=== PATIENT | female | born 1965 | race American Indian/Alaskan Native ===

== ENCOUNTER 2018-10-30 10:54 | Inpatient (IN) | payer MEDICAID ==
[2018-10-30 11:18] VITALS: BMI 36.8
--- NOTE | 2018-10-30 11:28 | C.PDOC ---
History Of Present Illness 53 year old female referred to ED from outpatient psych for admission for worsening depression. Patient is a poor historian. Patient states that she takes her medication, but is still depressed. Patient denies drug use, alcohol abuse, suicidal ideation, or homicidal ideation. Time Seen by Provider: 10/30/18 11:25 Chief Complaint (Nursing): Psychiatric Evaluation History Per: Patient History/Exam Limitations: no limitations Onset/Duration Of Symptoms: Unknown Current Symptoms Are (Timing): Worse Suicide/Self Injury Attempted (Context): None Modifying Factor(s): None Associated Symptoms: Depression. denies: Suicidal Thoughts, Suicidal Plan Past Medical History Reviewed: Historical Data, Nursing Documentation, Vital Signs Vital Signs: Last Vital Signs Temp 98 F 10/30/18 11:07 Pulse Resp BP 154/91 H 10/30/18 11:07 Pulse Ox Primary Care Provider: Non [facility] Provider, - Medical History PMH: Anxiety, Asthma, Bipolar Disorder, COPD, Graves' Disease, HTN, Sleep Apnea Surgical History: No Surg Hx Family History: States: Unknown Family Hx - Social History Hx Alcohol Use: Yes Hx Substance Use: No - Immunization History Hx Tetanus Toxoid Vaccination: No Hx Influenza Vaccination: No Hx Pneumococcal Vaccination: No Review Of Systems Except As Marked, All Systems Reviewed And Found Negative. Psych: Positive for: Depression. Negative for: Suicidal ideation Physical Exam - Physical Exam Appears: Non-toxic, No Acute Distress, Other (flat affect, no acute intoxication) Skin: Normal Color, Warm, Dry Head: Atraumatic, Normacephalic Eye(s): bilateral: Normal Inspection, PERRL, EOMI Neck: Normal ROM, Supple Chest: Symmetrical, No Deformity Cardiovascular: Rhythm Regular, No Murmur Respiratory: No Accessory Muscle Use, No Rales, No Rhonchi, No Wheezing, Other (NARD) Gastrointestinal/Abdominal: Soft, No Tenderness, No Distention, No Guarding, No Rebound Extremity: Capillary Refill (<2 seconds) Extremity: Bilateral: Atraumatic, Normal Color And Temperature, Normal ROM Pulses: Left Radial: Normal, Right Radial: Normal Neurological/Psych: Oriented x3, Other (calm, cooperative, no active psychosis, no suicidal ideation, no suicide attempt) ED Course And Treatment - Laboratory Results Result Diagrams: 10/30/18 12:42 10/30/18 12:42 Progress Note: Labs ordered with drug screen and UA. CBC and UA ordered for patient. Pending Crisis/Psych evaluation. Reevaluation Time: 14:09 Reassessment Condition: Unchanged (MED CLEAR FOR PSYCH. CRISIS NOTIFIED) Disposition Counseled Patient/Family Regarding: Studies Performed, Diagnosis - Disposition Disposition: HOSPITALIZED Disposition Time: 14:14 Condition: STABLE Forms: [facility] (Kinyarwanda) - POA Present On Arrival: None - Clinical Impression Clinical Impression: Depression - Scribe Statement The provider has reviewed the documentation as recorded by the Scribe (Janie Hernandez) All medical record entries made by the Scribe were at my direction and personally dictated by me. I have reviewed the chart and agree that the record accurately reflects my personal performance of the history, physical exam, med ical decision making, and the department course for this patient. I have also personally directed, reviewed, and agree with the discharge instructions and disposition.
[2018-10-30 12:46] LABS: BASO % 0.7 % (0.0-2.0); EOS # 0.1 K/uL (0.0-0.7); EOS % 1.5 % (0.0-4.0); HEMOGLOBIN 12.5 g/dL (11.0-16.0); LYMPH # 1.3 K/uL (1.0-4.3); LYMPH % 31.3 % (20.0-40.0); MEAN CELL VOLUME 84.9 fL (81.0-99.0); MEAN CORPUSCULAR HEMOGLOBIN 28.6 pg (27.0-31.0); MEAN CORPUSCULAR HGB CONC 33.6 g/dL (33.0-37.0); MEAN PLATELET VOLUME 8.6 fL (7.2-11.7); MONO # 0.2 K/uL (0.0-0.8); MONO % 4.9 % (0.0-10.0); NEUT # 2.6 K/uL (1.8-7.0); NEUT % 61.6 % (50.0-75.0); NRBC % 0.1 % (0.0-2.0); RBC 4.39 Mil/uL (3.80-5.20); RED CELL DISTRIBUTION WIDTH 14.2 % (11.5-14.5); WHITE BLOOD COUNT 4.2 K/uL (4.8-10.8)
[2018-10-30 13:05] LABS: ALB/GLOB RATIO 1.3 (1.0-2.1); ALBUMIN 4.4 g/dL (3.5-5.0); ALT/SGPT 20 U/L (9-52); AST/SGOT 45 U/L (14-36); BLOOD UREA NITROGEN 12 mg/dL (7-17); CALCIUM 9.5 mg/dl (8.6-10.4); GFR NON-AFRICAN AMERICAN 52
[2018-10-30 13:44] LABS: SQUAMOUS EPITHIAL 9 /hpf (0-5); URINE BACTERIA OCC (<OCC); URINE BILIRUBIN NEGATIVE (NEGATIVE); URINE BLOOD NEGATIVE (NEGATIVE); URINE CLARITY Clear (Clear); URINE COLOR Yellow (YELLOW); URINE GLUCOSE (UA) NORMAL (Normal); URINE LEUKOCYTE ESTERASE 2+ Leu/uL (Negative); URINE PROTEIN NEGATIVE (NEGATIVE); URINE UROBILINOGEN NORMAL mg/dL (0.2-1.0)
[2018-10-30 13:52] LABS: BARBITURATES, UR NEGATIVE (NEGATIVE); BENZODIAZEPINES, UR NEGATIVE (NEGATIVE); OPIATES, UR NEGATIVE (NEGATIVE); PHENCYCLIDINE, UR NEGATIVE (NEGATIVE)
--- NOTE | 2018-10-30 17:53 | PCM.BM ---
<Aimee Norman - Last Filed: 10/30/18 17:50> Treatment Plan Problems - Problems identified on initial assessmt Altered Sleep Patterns Date Initiated: 10/30/18 Time Initiated: 17:51 Assessment reference: NA Status: Active Medication Nonadherence Date Initiated: 10/30/18 Time Initiated: 17:51 Assessment reference: NA Status: Active Self Care Deficit Date Initiated: 10/30/18 Time Initiated: 17:51 Assessment reference: NA Status: Active Treatment assets and liabiliti Patient Assests: adapts well, cooperative, educated, self-reliant, ADL independent, physically healthy, negotiates basic needs, cognitively intact Patient Liabilities: physical pain, financial problems (Unemployed), medical problems (HTN, Lupus, Asthma, Sleep Apnea), visual impairment (Wear Glasses) - Milieu Protocol Maintain good personal hygiene: daily Encourage regular showers, daily Remind patient to perform daily oral care, daily Assist patient to perform ADL's (Self), other Assist patient to perform ADL's Conduct patient checks and document Observation sheet: Q15 minutes (Safety) Maintain personal safety: every shift Educate patient to report safety concerns to staff, every shift Monitor environment for contraband/sharps Medication safety: Monitor for expected outcome, potential side effects: every shift, Assess barriers to learning: every shift, Assess readiness for medication education: every shift <Gena Mar - Last Filed: 10/31/18 10:20> - Diagnosis (1) Bipolar disorder, curr episode depressed, severe, w/psychotic features Status: Acute Interventions: 10/31/18 10:21 * Assess/adjust medications daily and /or as needed * See patient on an individual basis 7x/week to assess symptoms of depression * Monitor for side effects & effectiveness of medications * <Soni Triana - Last Filed: 10/31/18 12:53> Family Contact Family involvement: Family/SO is involved Family contact: Patient declines to allow family contact at present - Goals for Treatment Patient goals for treatment: "I need to be calm." Discharge/Continuing Care - Education Needs Education Needs: Patient Medication, Patient Coping Skills - Discharge Discharge Criteria: Tolerates medication w/o severe side effects, Reduction of target symptoms Discharge to:: Home, With Family - Treatment Team Participation Discussed with Family/SO: No Was Patient/Family/SO present at Treatment Team Meeting: Yes
--- NOTE | 2018-10-31 09:45 | PCM.PSYCH ---
Initial Psychiatric Evaluation - Initial Psychiatric Evaluation Type of Admission: Voluntary Legal Status: Capacity Chief Complaint (in patient's own words): I was feeling depressed and suicidal.' History of Present Illness and Precipitating Events: Patient is a 53 year old female, currently unemployed, lives with her son, was referred by Dr. Brooks from the [facility] to come into [facility], because of increasing depressed mood and passive suicidal ideation. Patient reports history of one inpatient psychiatric hospitalization, in 1996 at [facility], when her sister by heroin overdose. She reports history of follow-up with the [facility], Dr. Brooks. Her last appointment was yesterday. As per the patient, she was feeling so depressed yesterday that her doctor recommended her to go to the ED. Patient reports a lot of stressors. She reports that she lost her father, last year, Jun 2017. She lost her mother in 2010, and lost 2 sisters afterwards. She reports that she feels lonely as she has a brother, who speaks with her rarely. She reports that she broke up with the ex-BF after a long standing relationship. But she sees ex BF, in [place] everyday. Yesterday she dad a verbal altercation with her ex boyfriend, became increasingly depressed and developed passive suicidal ideation. So she came to the hospital to get the help. She reports depressed mood, feelings of hopelessness, helplessness and worthlessness. She reports poor sleep and anhidonia. She reports that she is not eating and her weight is dropping these days. Patient reported that she is having difficulty in functioning in everyday life and this has led her to become unemployed and wanting to be alone most of the day. Patient appeared unkempt and has a poor hygiene. Her affect was very blunted and flat. She reports anxiety a nd panic attacks and reports symptoms including palpitation, shortness of breath, sweating, and tingling. She reports that at times she gets angry, and irritable. She reports racing thoughts. She reports visual hallucinations, seeing shadows but denies any voices. She reports of drinking socially but denies any drugs. PMH: Lupus, graves disease, Sleep apnea, HTN, Vertigo, Asthma Current Medications: Active Medications Generic Name Dose Route Start Last Admin Trade Name Freq PRN Reason Stop Dose Admin Amlodipine Besylate 5 mg 10/31/18 10:00 10/31/18 09:23 Norvasc PO 5 mg DAILY OLEGARIO Administration Buspirone HCl 5 mg 10/30/18 18:00 10/31/18 09:23 Buspar PO 5 mg BID OLEGARIO Administration Pneumococcal Polyvalent Vaccine 0.5 ml 11/02/18 10:00 Pneumovax 23 Vaccine IM 11/02/18 10:01 .ONCE ONE Sertraline HCl 150 mg 10/31/18 10:00 10/31/18 09:23 Zoloft PO 150 mg DAILY OLEGARIO Administration Zolpidem Tartrate 5 mg 10/30/18 22:00 10/30/18 21:49 Ambien PO 5 mg HS OLEGARIO Administration Past Psychiatric History - Past Psychiatric History Previous Treatment History: Inpatient Pertinent Medical Hx (Current Medical&Sleep Prob, Allergies): Allergies Allergy/AdvReac Type Severity Reaction Status Date / Time levofloxacin [From Levaquin] Allergy Verified 10/30/18 11:06 Colesevelam HCl [Welchol] 625 mg PO DAILY 10/30/18 Cyanocobalamin (Vitamin B-12) [Vitamin B12] 2,500 mcg PO DAILY 10/30/18 Cyclobenzaprine [Cyclobenzaprine HCl] 10 mg PO BID 10/30/18 Gabapentin [Neurontin] 100 mg PO TID 10/30/18 Hydroxyzine HCl 25 mg PO BID 10/30/18 Levocetirizine Dihydrochloride 5 mg PO DAILY 10/30/18 Losartan [Cozaar] 50 mg PO DAILY 10/30/18 Meclizine HCl 25 mg PO DAILY 10/30/18 amLODIPine [Norvasc] 5 mg PO DAILY 10/30/18 Review of Systems - Review of Systems All systems: reviewed and no additional remarkable complaints except - Psychiatric Psychiatric: Anxiety, Hallucinations, Irritability, Mood Swings, Suicidal Ideation Mental Status Examination - Personal Presentation Personal Presentation: Looks stated age - Affect Affect: Constricted, Depressed - Motor Activity Motor Activity: Calm - Reliability in Providing Information Reliability in Providing Information: Poor, due to altered mood - Speech Speech: Organized - Mood Mood: Depressed, Anxious - Formal Thought Process Formal Thought Process: Hallucinations, Flight of ideas - Hallucinations/Delusions Hallucinations: Visual - Obsessions/Compulsions Obsessions: No Compulsions: No - Cognitive Functions Orientation: Person, Place, Situation, Time Sensorium: Alert Attention/Concentration: Attentive Abstract Thinking: [place] Estimate of Intelligence: Below average Judgement: Imparied, as evidence by: Poor judgement, Imparied, as evidence by: Lack of insight into illness - Risk Risk: Suicidal, Diminished functioning - Limitations Limitations: Living alone DSM 5 DX - DSM 5 DSM 5 Diagnosis: Bipolar depressed severe with psychotic features Generalized anxiety disorder - Recommended/Plan of Treatment Treatment Recommendations and Plan of Treatment: Bipolar depressed severe with psychotic features Generalized anxiety disorder Lupus Asthma Sleep apnea Graves' disease HTN CBT Psychoeducation Supportive therapy Zoloft for depression Topamax for mood Neurontin for mood Ambien for insomnia Continue medications for lupus, asthma, sleep apnea Continue medications for Graves' disease, HTN - Smoking Cessation Smoking Cessation Initiated: No
[2018-10-31] MEDS: Metoprolol Succinate 100 mg XL Tab PO SCH ×2 (10:01→17:28)
[2018-10-31] MEDS: methIMAzole 5 MG TAB PO SCH (11:01)
[2018-10-31] MEDS: Pantoprazole 40 mg EC Tab PO SCH (12:42)
[2018-10-31] MEDS: Albuterol 0.083% Inhal Sol (2.5 mg/3 mL) UD INH PRN (14:09)
[2018-11-01] MEDS: Pantoprazole 40 mg EC Tab PO SCH (09:25)
[2018-11-01] MEDS: Cholestyramine 4 gm/Pkt UD PO SCH (09:25)
[2018-11-01] MEDS: Metoprolol Succinate 100 mg XL Tab PO SCH ×2 (09:25→18:05)
[2018-11-01] MEDS: methIMAzole 5 MG TAB PO SCH (09:26)
--- NOTE | 2018-11-01 16:10 | PCM.PYCHPN ---
Psychiatric Progress Note - Psychiatric Progress Note Patient seen today, length of contact: 15 min Patient Chief Complaint: I was feeling depressed and suicidal.' Problems Identified/Issues Discussed: Patient was seen and evaluated, chart reviewed and discussed the staff. Patient reports depressed mood and at times feelings of hopelessness and helplessness. Per staff she remained cooperative and redirectable She still appears somewhat paranoid and delusional. She still reports of hearing voices. She is taking medication but denies any side effects. She needs to stay longer for the stabilization of the symptoms. Supportive therapy was provided. Medication Change: Yes Medical Record Reviewed: Yes Mental Status Examination - Cognitive Function Orientation: Person, Place, Situation, Time Memory: Intact Attention: WNL Concentration: WNL Association: Loose Fund of Knowledge: Poor - Mood Mood: Depressed, Anxious - Affect Affect: Constricted, Depressed - Speech Speech: Soft - Formal Thought Process Formal Thought Process: Hallucinations, Loosening of associations, Flight of ideas - Suicidal Ideation Suicidal Ideation: No - Homicidal Ideation Homicidal Ideation: No Goal/Treatment Plan - Goal/Treatment Plan Need for Continued Stay: Remain at risks for inpatient hospitalization Progress Toward Problem(s) and Goals/Treatment Plan: Bipolar depressed severe with psychotic features Generalized anxiety disorder Lupus Asthma Sleep apnea Graves' disease HTN CBT Psychoeducation Supportive therapy Zoloft for depression Topamax for mood Neurontin for mood Ambien for insomnia Continue medications for lupus, asthma, sleep apnea Continue medications for Graves' disease, HTN
[2018-11-02] MEDS: Cholestyramine 4 gm/Pkt UD PO SCH (09:32)
[2018-11-02] MEDS: Pantoprazole 40 mg EC Tab PO SCH (09:33)
[2018-11-02] MEDS: Metoprolol Succinate 100 mg XL Tab PO SCH ×2 (09:34→17:08)
[2018-11-02] MEDS: methIMAzole 5 MG TAB PO SCH (09:34)
[2018-11-02] MEDS ORDERED: Pneumococcal 23-Valent Vaccine IM ONE (10:00)
--- NOTE | 2018-11-02 21:55 | PCM.PYCHPN ---
Psychiatric Progress Note - Psychiatric Progress Note Patient seen today, length of contact: 15 min Patient Chief Complaint: I was feeling depressed and suicidal.' Problems Identified/Issues Discussed: Patient was seen and evaluated, chart reviewed and discussed the staff. Per staff she remained cooperative and redirectable Patient reports depressed mood and at times feelings of hopelessness and helplessness. She still appears somewhat paranoid and delusional. She still reports of hearing voices. She is taking medication but denies any side effects. She needs to stay longer for the stabilization of the symptoms. Supportive therapy was provided. Medication Change: Yes Medical Record Reviewed: Yes Mental Status Examination - Cognitive Function Orientation: Person, Place, Situation, Time Memory: Intact Attention: WNL Concentration: WNL Association: Loose Fund of Knowledge: Poor - Mood Mood: Depressed, Anxious - Affect Affect: Constricted, Depressed - Speech Speech: Soft - Formal Thought Process Formal Thought Process: Hallucinations, Loosening of associations, Flight of ideas - Suicidal Ideation Suicidal Ideation: No - Homicidal Ideation Homicidal Ideation: No Goal/Treatment Plan - Goal/Treatment Plan Need for Continued Stay: Remain at risks for inpatient hospitalization Progress Toward Problem(s) and Goals/Treatment Plan: Bipolar depressed severe with psychotic features Generalized anxiety disorder Lupus Asthma Sleep apnea Graves' disease HTN CBT Psychoeducation Supportive therapy Zoloft for depression Topamax for mood Neurontin for mood Ambien for insomnia Continue medications for lupus, asthma, sleep apnea Continue medications for Graves' disease, HTN
[2018-11-03] MEDS: Pantoprazole 40 mg EC Tab PO SCH (10:06)
[2018-11-03] MEDS: methIMAzole 5 MG TAB PO SCH (10:07)
[2018-11-03] MEDS: Metoprolol Succinate 100 mg XL Tab PO SCH ×2 (10:07→18:16)
[2018-11-03] MEDS: Cholestyramine 4 gm/Pkt UD PO SCH (10:08)
[2018-11-03] MEDS ORDERED: Magnesium Hydroxide Susp 30 ml UD PO ONE (11:40)
--- NOTE | 2018-11-03 11:40 | PCM.PYCHPN ---
Psychiatric Progress Note - Psychiatric Progress Note Patient seen today, length of contact: 15 min Patient Chief Complaint: "I'm bloated" Problems Identified/Issues Discussed: The pt is seen again, chart reviewed, and case is discussed with the team. The pt denies any side-effects from meds. Attends activities and groups, brief individual therapy provided Not ready for discharge due to ongoing symptoms and high relapse risk. After care discussed again. Medication Change: Yes (MOM x1) Medical Record Reviewed: Yes Mental Status Examination - Cognitive Function Orientation: Person, Place, Situation, Time Memory: Intact Attention: WNL Concentration: WNL Association: Loose Fund of Knowledge: Poor - Mood Mood: Depressed, Anxious - Affect Affect: Constricted, Depressed - Speech Speech: Soft - Formal Thought Process Formal Thought Process: No Impairment - Suicidal Ideation Suicidal Ideation: No - Homicidal Ideation Homicidal Ideation: No Goal/Treatment Plan - Goal/Treatment Plan Need for Continued Stay: Discharge may exacerbated symptoms, Severe functional impairment Progress Toward Problem(s) and Goals/Treatment Plan: Continue medications Support and psychoeducation daily Attend groups and activities daily Individual therapy After care planning by SUKHJINDER and the team
[2018-11-04 06:49] VITALS: RESP 20
[2018-11-04] MEDS: Metoprolol Succinate 100 mg XL Tab PO SCH ×2 (09:38→18:47)
[2018-11-04] MEDS: Pantoprazole 40 mg EC Tab PO SCH (09:38)
[2018-11-04] MEDS: methIMAzole 5 MG TAB PO SCH (09:38)
[2018-11-04] MEDS: Cholestyramine 4 gm/Pkt UD PO SCH (09:39)
[2018-11-04] MEDS: Albuterol 0.083% Inhal Sol (2.5 mg/3 mL) UD INH PRN (22:05)
[2018-11-05] MEDS: Pantoprazole 40 mg EC Tab PO SCH (09:22)
[2018-11-05] MEDS: Cholestyramine 4 gm/Pkt UD PO SCH (09:22)
[2018-11-05] MEDS: Metoprolol Succinate 100 mg XL Tab PO SCH ×2 (09:25→17:33)
[2018-11-05] MEDS: methIMAzole 5 MG TAB PO SCH (09:45)
--- NOTE | 2018-11-05 10:49 | PCM.PYCHPN ---
Psychiatric Progress Note - Psychiatric Progress Note Patient seen today, length of contact: 15 min Patient Chief Complaint: I was feeling depressed and suicidal.' Problems Identified/Issues Discussed: Patient was seen and evaluated, chart reviewed and discussed the staff. Per staff she remained cooperative and redirectable Patient reports depressed mood and at times feelings of hopelessness and helplessness. She still appears somewhat paranoid and delusional. She still reports of hearing voices. She is taking medication but denies any side effects. She needs to stay longer for the stabilization of the symptoms. Supportive therapy was provided. Medication Change: Yes (MOM x1) Medical Record Reviewed: Yes Mental Status Examination - Cognitive Function Orientation: Person, Place, Situation, Time Memory: Intact Attention: WNL Concentration: WNL Association: Loose Fund of Knowledge: Poor - Mood Mood: Depressed, Anxious - Affect Affect: Constricted, Depressed - Speech Speech: Soft - Formal Thought Process Formal Thought Process: No Impairment - Suicidal Ideation Suicidal Ideation: No - Homicidal Ideation Homicidal Ideation: No Goal/Treatment Plan - Goal/Treatment Plan Need for Continued Stay: Discharge may exacerbated symptoms, Severe functional impairment Progress Toward Problem(s) and Goals/Treatment Plan: Bipolar depressed severe with psychotic features Generalized anxiety disorder Lupus Asthma Sleep apnea Graves' disease HTN CBT Psychoeducation Supportive therapy Zoloft for depression Topamax for mood Neurontin for mood Ambien for insomnia Continue medications for lupus, asthma, sleep apnea Continue medications for Graves' disease, HTN
[2018-11-06 06:59] VITALS: BP 126/65; PULSE 68; TEMP 98.7; O2SAT 97
[2018-11-06] MEDS: Metoprolol Succinate 100 mg XL Tab PO SCH (10:42)
[2018-11-06] MEDS: methIMAzole 5 MG TAB PO SCH (10:43)
[2018-11-06] MEDS: Pantoprazole 40 mg EC Tab PO SCH (10:43)
[2018-11-06] MEDS: Cholestyramine 4 gm/Pkt UD PO SCH (10:44)
== END 2018-11-06 03:15 | disposition home or self-care (01) | DRG 430 ==
LOC: C.ER 10:54 → C.5E 14:14
PROVIDERS: ADMIT Psychiatry & Neurology Psychiatry; ATTEND Psychiatry & Neurology Psychiatry
PROC: GZ3ZZZZ Medication Management (ICD-10-PCS; principal; 2018-10-30)
PROC: GZHZZZZ Group Psychotherapy (ICD-10-PCS; 2018-10-30)
PROC: GZ56ZZZ Individual Psychotherapy, Supportive (ICD-10-PCS; 2018-10-30)
DX: F31.5 Bipolar disorder, current episode depressed, severe, with psychotic features (principal); J44.9 Chronic obstructive pulmonary disease, unspecified; R45.851 Suicidal ideations; F41.0 Panic disorder [episodic paroxysmal anxiety]; R20.2 Paresthesia of skin; F41.1 Generalized anxiety disorder; G47.30 Sleep apnea, unspecified; I10 Essential (primary) hypertension; F17.210 Nicotine dependence, cigarettes, uncomplicated; E05.00 Thyrotoxicosis with diffuse goiter without thyrotoxic crisis or storm